=== PATIENT | female | born 1965 | race Caucasian/White ===

== ENCOUNTER 2017-03-24 19:43 | Emergency (ER) | payer OTHER ==
[2017-03-24 19:53] VITALS: PULSE 78; RESP 18; TEMP 98.5; O2SAT 98
[2017-03-24 20:20] LABS: RBC URINE 1 /hpf (0-3); URINE BACTERIA RARE (<OCC); URINE BILIRUBIN NEGATIVE (NEGATIVE); URINE BLOOD NEGATIVE (NEGATIVE); URINE COLOR Yellow (YELLOW); URINE GLUCOSE (UA) NORMAL (Normal); URINE KETONE NEGATIVE (NEGATIVE); URINE LEUKOCYTE ESTERASE NEG Leu/uL (Negative); URINE PROTEIN NEGATIVE (NEGATIVE); URINE UROBILINOGEN NORMAL mg/dL (0.2-1.0); WBC URINE 1 /hpf (0-5)
[2017-03-24] MEDS ORDERED: Sodium Chloride 0.9% 1,000 ML IV ONE (20:23)
--- NOTE | 2017-03-24 20:23 | C.PDOC ---
History Of Present Illness pt c/o r inguinal area discomfort, no trauma,. no dysuria. dull, aching pain Time Seen by Provider: 03/24/17 20:23 Chief Complaint (Nursing): Female Genitourinary History Per: Patient History/Exam Limitations: no limitations Onset/Duration Of Symptoms: Days Current Symptoms Are (Timing): Still Present Context: Other Severity: Moderate Pain Scale Rating Of: 4 Location Of Pain/Discomfort: RLQ Radiation Of Pain To:: None Quality Of Discomfort: Dull, Aching Associated Symptoms: denies: Fever Exacerbating Factors: Movement Alleviating Factors: None Last Bowel Movement: Today Recent travel outside of the [place]: No Additional History Per: Family Abnormal Vaginal Bleeding: No Past Medical History Reviewed: Historical Data, Nursing Documentation, Vital Signs Vital Signs: Last Vital Signs Temp 98.5 F 03/24/17 19:50 Pulse 78 03/24/17 22:34 Resp 18 03/24/17 22:34 BP 122/71 03/24/17 22:34 Pulse Ox 98 03/24/17 22:34 Family History: States: No Known Family Hx - Social History Hx Alcohol Use: No Hx Substance Use: No - Immunization History Hx Tetanus Toxoid Vaccination: No Hx Influenza Vaccination: No Hx Pneumococcal Vaccination: No Review Of Systems Constitutional: Negative for: Fever, Chills Eyes: Negative for: Redness ENT: Negative for: Throat Pain Cardiovascular: Negative for: Chest Pain Respiratory: Negative for: Shortness of Breath Gastrointestinal: Positive for: Abdominal Pain (rlq). Negative for: Nausea Genitourinary: Negative for: Dysuria, Vaginal Bleeding Musculoskeletal: Negative for: Back Pain Skin: Negative for: Rash, Lesions, Jaundice, Bruising Neurological: Negative for: Weakness Psych: Negative for: Anxiety Physical Exam - Physical Exam Appears: Non-toxic, No Acute Distress Skin: Warm, Dry Oral Mucosa: Moist Neck: Trachea Midline, Supple Chest: Symmetrical Cardiovascular: Rhythm Regular Respiratory: No Rales, No Rhonchi, No Wheezing Gastrointestinal/Abdominal: Soft, Tenderness (rlq, inguinal area), No Distention , No Guarding, No Rebound Back: Normal Inspection Extremity: Normal ROM Extremity: Bilateral: Atraumatic, Normal Color And Temperature Neurological/Psych: Oriented x3, Normal Speech, Normal Cognition Gait: Steady ED Course And Treatment - Laboratory Results Result Diagrams: 03/24/17 20:38 03/24/17 20:38 O2 Sat by Pulse Oximetry: 98 Pulse Ox Interpretation: Normal Progress Note: blood work, Reevaluation Time: 23:20 Reassessment Condition: Improved Medical Decision Making Medical Decision Making: Upon provider reevaluation patient is feeling better, is medically stable, and requires no further treatment in the ED at this time. Patient will be discharged home with Rx for naproxyn . Counseling was provided and all questions were answered regarding diagnosis and need for follow up with the referred clinic. There is agreement to discharge plan. Return if symptoms persist or worsen. Disposition Counseled Patient/Family Regarding: Studies Performed, Diagnosis, Need For Followup - Disposition Referrals: [facility] [Outside] [facility] [Outside] Disposition: HOME/ ROUTINE Disposition Time: 20:23 Condition: FAIR Additional Instructions: Please return if symptoms recur. Please follow up in clinic re: inguinal cyst and pleural base nodule left lower lobe Prescriptions: Naproxen [Naprosyn] 1 tab PO BID PRN #25 tab PRN Reason: Pain Instructions: Groin Pain (ED), Pulmonary Nodules (ED) Print Language: VATICAN CITIZEN - Clinical Impression Clinical Impression: Inguinal cyst, Incidental lung nodule, > 3mm and < 8mm
[2017-03-24 20:45] LABS: BASO # 0.1 K/uL (0.0-0.2); BASO % 1.1 % (0.0-2.0); EOS # 0.2 K/uL (0.0-0.7); EOS % 2.3 % (0.0-4.0); HEMATOCRIT 40.6 % (34.0-47.0); LYMPH # 3.1 K/uL (1.0-4.3); LYMPH % 40.5 % (20.0-40.0); MEAN CELL VOLUME 88.8 fL (81.0-99.0); MEAN CORPUSCULAR HEMOGLOBIN 28.6 pg (27.0-31.0); MEAN CORPUSCULAR HGB CONC 32.2 g/dL (33.0-37.0); MEAN PLATELET VOLUME 9.7 fL (7.2-11.7); MONO # 0.6 K/uL (0.0-0.8); MONO % 8.3 % (0.0-10.0); RED CELL DISTRIBUTION WIDTH 13.8 % (11.5-14.5); WHITE BLOOD COUNT 7.8 K/uL (4.8-10.8)
[2017-03-24 20:53] LABS: CHLORIDE 98 mmol/L (98-107); POTASSIUM 3.9 mmol/L (3.6-5.2); SODIUM 138 mmol/L (132-148)
[2017-03-24 20:55] LABS: ALB/GLOB RATIO 1.2 (1.0-2.1); ALKALINE PHOSPHATASE 89 U/L (38-126); AST/SGOT 24 U/L (14-36); BILIRUBIN,TOTAL 0.8 mg/dL (0.2-1.3); CARBON DIOXIDE 31 mmol/L (22-30); GFR AFRICAN-AMERICAN > 60; TOTAL PROTEIN 8.1 g/dL (6.3-8.3)
[2017-03-24 20:56] LABS: ALT/SGPT 12 U/L (9-52); BLOOD UREA NITROGEN 19 mg/dL (7-17); CALCIUM 9.3 mg/dl (8.6-10.4); GLUCOSE,RANDOM 119 mg/dL (65-105)
[2017-03-24] MEDS ORDERED: Iohexol 300 100 ML IJ ONE (21:20)
[2017-03-24 22:35] VITALS: BP 122/71
--- NOTE | 2017-03-25 08:15 | CT ---
PROCEDURE: CT Abdomen and Pelvis with contrast HISTORY: rlq, inguinal pain COMPARISON: None. TECHNIQUE: Contrast dose: 100 cc of Omnipaque 320 Radiation dose: Total exam DLP = 293 mGy-cm. This CT exam was performed using one or more of the following dose reduction techniques: Automated exposure control, adjustment of the mA and/or kV according to patient size, and/or use of iterative reconstruction technique. FINDINGS: LOWER THORAX: 5 millimeter subpleural nodule at the left base. LIVER: Unremarkable. No gross lesion or ductal dilatation. GALLBLADDER AND BILE DUCTS: Unremarkable. PANCREAS: Unremarkable. No gross lesion or ductal dilatation. SPLEEN: Unremarkable. ADRENALS: Unremarkable. No mass. KIDNEYS AND URETERS: Unremarkable. No hydronephrosis. No solid mass. VASCULATURE: Unremarkable. No aortic aneurysm. BOWEL: Unremarkable. No obstruction. No gross mural thickening. APPENDIX: Normal appendix. PERITONEUM: Unremarkable. No free fluid. No free air. LYMPH NODES: Unremarkable. No enlarged lymph nodes. BLADDER: Unremarkable. REPRODUCTIVE: Unremarkable. BONES: No acute fracture. OTHER FINDINGS: 2 centimeter fluid collection in the right groin without peripheral enhancement.. IMPRESSION: 2 centimeter fluid collection in the right groin without peripheral enhancement.. 5 millimeter subpleural nodule at the left base.
== END 2017-03-24 23:34 | disposition home or self-care (01) ==
LOC: SUPCPDRO 19:43 → C.ER 19:43
DX: L72.8 Other follicular cysts of the skin and subcutaneous tissue (principal); R91.1 Solitary pulmonary nodule
CPT/HCPCS: 74177; 80053; 81001; 83690; 84703; 85025; 99284; J7040; Q9967

== ENCOUNTER 2017-09-17 22:02 | Emergency (ER) | payer OTHER ==
[2017-09-17 22:03] VITALS: BMI 25.9
[2017-09-17 23:07] LABS: RBC URINE 3 /hpf (0-3); URINE BACTERIA RARE (<OCC); URINE BILIRUBIN NEGATIVE (NEGATIVE); URINE BLOOD NEGATIVE (NEGATIVE); URINE COLOR Yellow (YELLOW); URINE GLUCOSE (UA) NORMAL (Normal); URINE KETONE NEGATIVE (NEGATIVE); URINE LEUKOCYTE ESTERASE 3+ Leu/uL (Negative); URINE PROTEIN NEGATIVE (NEGATIVE); URINE UROBILINOGEN NORMAL mg/dL (0.2-1.0); WBC URINE 27 /hpf (0-5)
--- NOTE | 2017-09-17 23:59 | C.PDOC ---
History Of Present Illness <La Lerner - Last Filed: 09/18/17 00:51> <Meenu Orozco - Last Filed: 09/18/17 03:45> Patient is a 52 y/o female who presents to the ED with complaints of suprapubic pain, dysuria, and urinary frequency since yesterday. Patient notes today the onset of a mild headache as well. Patient has a Hx of hernia surgery from an old incision but reports no swelling or pain to the area. No other physical complaints at this time. (Meenu Orozco) <La Lerner - Last Filed: 09/18/17 00:51> History Per: Patient History/Exam Limitations: no limitations Onset/Duration Of Symptoms: Days (yesterday) Current Symptoms Are (Timing): Still Present Associated Symptoms: Urinary Symptoms (dysuria and urinary frequency) Recent travel outside of the [place]: No <Meenu Orozco - Last Filed: 09/18/17 03:45> Time Seen by Provider: 09/17/17 22:26 Chief Complaint (Nursing): Abdominal Pain Past Medical History Surgical History: No Surg Hx Family History: States: No Known Family Hx - Social History Hx Tobacco Use: No Hx Alcohol Use: No Hx Substance Use: No - Immunization History Hx Tetanus Toxoid Vaccination: No Hx Influenza Vaccination: No Hx Pneumococcal Vaccination: No <La Lerner - Last Filed: 09/18/17 00:51> Reviewed: Historical Data, Nursing Documentation, Vital Signs - Medical History PMH: No Chronic Diseases Denies: Chronic Kidney Disease Surgical History: No Surg Hx Family History: States: No Known Family Hx - Social History Hx Alcohol Use: No Hx Substance Use: No - Immunization History Hx Tetanus Toxoid Vaccination: No Hx Influenza Vaccination: No Hx Pneumococcal Vaccination: No <Meenu Orozco - Last Filed: 09/18/17 03:45> Vital Signs: Last Vital Signs Temp 98.4 F 09/18/17 00:15 Pulse 74 09/18/17 00:15 Resp 18 09/18/17 00:15 BP 110/75 09/18/17 00:15 Pulse Ox 98 09/18/17 02:52 Review Of Systems Except As Marked, All Systems Reviewed And Found Negative. Constitutional: Negative for: Fever, Chills Eyes: Negative for: Pain, Vision Change ENT: Negative for: Ear Pain, Ear Discharge Cardiovascular: Positive for: Palpitations. Negative for: Chest Pain Respiratory: Negative for: Cough, Shortness of Breath, Hemoptysis <La Lerner - Last Filed: 09/18/17 00:51> Cardiovascular: Negative for: Palpitations Genitourinary: Positive for: Dysuria, Frequency Neurological: Positive for: Headache (mild) <Meenu Orozco - Last Filed: 09/18/17 03:45> Physical Exam - Physical Exam Appears: Well Skin: Normal Color Head: Atraumatic Eye(s): bilateral: Normal Inspection, PERRL, EOMI Ear(s): Bilateral: Normal, TM Erythema Nose: Normal Oral Mucosa: Moist Throat: Normal Neck: Normal Lymphatic: Deferred Chest: Symmetrical Cardiovascular: Rhythm Regular Respiratory: Normal Breath Sounds Gastrointestinal/Abdominal: Normal Exam Back: Normal Inspection Neurological/Psych: Oriented x3, Normal Speech, Normal Cognition <La Lerner - Last Filed: 09/18/17 00:51> - Physical Exam Skin: Other (suprapubic scar from previous tummy tuck surgery; small incision scar to right of perineal area, no swelling, bulging, or hernia) Eye(s): bilateral: Normal Inspection, PERRL Neck: Supple Gastrointestinal/Abdominal: Soft, No Tenderness Back: Normal Inspection, No CVA Tenderness Pelvic: Other (deferred) <Meenu Orozco - Last Filed: 09/18/17 03:45> ED Course And Treatment ECG: Interpreted By Me <La Lerner - Last Filed: 09/18/17 00:51> O2 Sat by Pulse Oximetry: 98 Pulse Ox Interpretation: Normal Progress Note: Plan: Urine culture ordered. Motrin, Macrobid, and Pyridium administered. Patient is negative for UTI. Plan d/w pt who understands and agreed with plan. Advised for follow up with PMD, return precautions were also discussed Reassessment Condition: Improved <Meenu Orozco - Last Filed: 09/18/17 03:45> Disposition <La Lerner - Last Filed: 09/18/17 00:51> Counseled Patient/Family Regarding: Diagnosis, Need For Followup, Rx Given - Disposition Disposition Time: 23:56 <Meenu Orozco - Last Filed: 09/18/17 03:45> - Disposition Referrals: [facility] at [facility] [Outside] Disposition: HOME/ ROUTINE Condition: STABLE Additional Instructions: Please drink plenty of fluids Take meds as directed Return to ER if worse Prescriptions: Ibuprofen [Motrin] 600 mg PO Q6H #20 tab Nitrofurantoin Macrocrystals [Macrobid] 1 cap PO BID #14 cap Phenazopyridine HCl [Pyridium] 100 mg PO TID #6 tab Instructions: Urinary Tract Infection in Women (ED) Forms: [employer] (Romanian) Print Language: COLOMBIAN - Clinical Impression Clinical Impression: UTI (urinary tract infection) <La Lerner - Last Filed: 09/18/17 00:51> - Scribe Statement The provider has reviewed the documentation as recorded by the Scribe <Meenu Orozco - Last Filed: 09/18/17 03:45> - Scribe Statement Vicky Noyola All medical record entries made by the Scribe were at my direction and personally dictated by me. I have reviewed the chart and agree that the record accurately reflects my personal performance of the history, physical exam, medical decision making, and the department course for this patient. I have also personally directed, reviewed, and agree with the discharge instructions and disposition. (Meenu Orozco)
[2017-09-18 00:16] VITALS: BP 110/75; PULSE 74; RESP 18; TEMP 98.4
[2017-09-18 02:49] VITALS: O2SAT 98
== END 2017-09-18 00:15 | disposition home or self-care (01) ==
LOC: C.ER 22:02
DX: N39.0 Urinary tract infection, site not specified (principal)

== ENCOUNTER 2018-07-16 15:45 | Emergency (ER) | payer OTHER ==
[2018-07-16 15:46] VITALS: BMI 25.9
--- NOTE | 2018-07-16 17:02 | C.PDOC ---
History Of Present Illness 53 y/o female with history of DM presents to ED with c/o "pressure" chest pain since this afternoon after she coughed. Patient states she is concern because she has been told there is a nodule in her lungs. She notes she had a OLIVO yesterday which has since resolved, not worst of life, not sudden in onset, no FND. Pt also noted back pain yesterday, none today, no hx of IVDU, no DM2, no trauma. No enuresis, encoparesis or loss of sensation in legs. denies sob, nausea, vomiting, leg swelling, recent travel or any other complaints at this time. Time Seen by Provider: 07/16/18 17:02 Chief Complaint (Nursing): Chest Pain History Per: Patient History/Exam Limitations: no limitations Onset/Duration Of Symptoms: Hrs Current Symptoms Are (Timing): Still Present Quality: Pressure Past Medical History Reviewed: Historical Data, Nursing Documentation, Vital Signs Vital Signs: Last Vital Signs Temp 98.0 F 07/16/18 18:55 Pulse 58 L 07/16/18 18:55 Resp 18 07/16/18 18:55 BP 112/72 07/16/18 18:55 Pulse Ox 100 07/16/18 19:42 - Medical History PMH: No Chronic Diseases Surgical History: No Surg Hx Family History: States: No Known Family Hx - Social History Hx Tobacco Use: No Hx Alcohol Use: No Hx Substance Use: No - Immunization History Hx Tetanus Toxoid Vaccination: Yes Hx Influenza Vaccination: Yes Hx Pneumococcal Vaccination: Yes Review Of Systems Except As Marked, All Systems Reviewed And Found Negative. Constitutional: Negative for: Fever, Chills Cardiovascular: Positive for: Chest Pain Respiratory: Positive for: Cough, Sputum. Negative for: Shortness of Breath, Wheezing Gastrointestinal: Negative for: Nausea, Vomiting Skin: Negative for: Rash Neurological: Positive for: Headache Physical Exam - Physical Exam Appears: Non-toxic, No Acute Distress Skin: Warm, Dry, No Rash Head: Atraumatic, Normacephalic Eye(s): bilateral: Normal Inspection Oral Mucosa: Moist Neck: Normal ROM, Supple Chest: Symmetrical Cardiovascular: Rhythm Regular Respiratory: Normal Breath Sounds, No Rales, No Rhonchi, No Wheezing Gastrointestinal/Abdominal: Soft, No Tenderness, No Guarding, No Rebound Extremity: Normal ROM, No Pedal Edema, Capillary Refill (<2 seconds) Neurological/Psych: Oriented x3, Normal Speech, Normal Cognition Additional Physical Exam Comments: no meningeal signs ED Course And Treatment - Laboratory Results Result Diagrams: 07/16/18 18:15 07/16/18 18:15 ECG: Interpreted By Me, Viewed By Me ECG Rhythm: Sinus Rhythm Rate From EC (BPM) O2 Sat by Pulse Oximetry: 100 (RA) Medical Decision Making Medical Decision Makin yr old female w/ hx of lung nodule p/w chest pain. No rx factors. No family hx of heart attacks, no HTN, DM2, HLD. Cough w/ streaks of blood, no wheezing or sore throat. Phonating and swallowing well. Pt notes she is mainly concerned about previous nodule on her xr. No meningeal signs on my exam. Fully normal neuro exam. No saddle anesthesia. Walking well. Plan: Blood work, EKG and CXR ordered. Tylenol administered. Heart Score: Story: 0 EK RF: 0 Trop: 0 age: 1 HS: 1 Gestalt low for PE labs and imaging unremarkable, clear for d/c home. Disposition - Disposition Referrals: Jamie Page MD [Staff Provider] - Disposition: HOME/ ROUTINE Disposition Time: 19:41 Condition: GOOD Additional Instructions: JUAN SHINE, thank you for letting us take care of you today. Your provider was Indra Bautista and you were treated for HEADACHE/BACK PAIN. The emergency medical care you received today was directed at your acute symptoms. If you were prescribed any medication, please fill it and take as directed. It may take several days for your symptoms to resolve. Return to the Emergency Department if your symptoms worsen, do not improve, or if you have any other problems. Please contact your doctor or call one of the physicians/clinics you have been referred to that are listed on the Patient Visit Information form that is included in your discharge packet. Bring any paperwork you were given at discharge with you along with any medications you are taking to your follow up visit. Our treatment cannot replace ongoing medical care by a primary care provider outside of the emergency department. Thank you for allowing the [facility] team to be part of your care today. If you had an X-Ray or CT scan: A Radiologist will review the ED reading if any change in treatment is needed we will contact you. If you had a blood, urine, or wound culture: It will take several days for the results, if any change in treatment is needed we will contact you. If you had an STI test: It will take 48 hours for the results. Please call after 1 week if you have not heard back. Instructions: Costochondritis, Chest Pain Forms: [employer] (Uruguayan) - Clinical Impression Clinical Impression: Chest pain, Chest pain, Chest discomfort - Scribe Statement The provider has reviewed the documentation as recorded by the Asmita Cavazos All medical record entries made by the Asmita were at my direction and personally dictated by me. I have reviewed the chart and agree that the record accurately reflects my personal performance of the history, physical exam, medical decision making, and the department course for this patient. I have also personally directed, reviewed, and agree with the discharge instructions and disposition.
[2018-07-16 17:49] VITALS: O2SAT 100
[2018-07-16 18:34] LABS: ALB/GLOB RATIO 1.2 (1.0-2.1); ALT/SGPT 12 U/L (9-52); AST/SGOT 23 U/L (14-36); BLOOD UREA NITROGEN 15 mg/dL (7-17); CALCIUM 9.5 mg/dl (8.6-10.4); GFR NON-AFRICAN AMERICAN > 60
[2018-07-16 18:35] LABS: BASO # 0.1 K/uL (0.0-0.2); BASO % 0.9 % (0.0-2.0); EOS % 0.4 % (0.0-4.0); HEMOGLOBIN 12.6 g/dL (11.0-16.0); LYMPH # 1.9 K/uL (1.0-4.3); LYMPH % 28.5 % (20.0-40.0); MEAN CELL VOLUME 89.9 fL (81.0-99.0); MEAN CORPUSCULAR HEMOGLOBIN 29.9 pg (27.0-31.0); MEAN CORPUSCULAR HGB CONC 33.3 g/dL (33.0-37.0); MEAN PLATELET VOLUME 10.1 fL (7.2-11.7); MONO # 0.5 K/uL (0.0-0.8); MONO % 8.1 % (0.0-10.0); NEUT % 62.1 % (50.0-75.0); RBC 4.2 Mil/uL (3.80-5.20); RED CELL DISTRIBUTION WIDTH 13.9 % (11.5-14.5); WHITE BLOOD COUNT 6.5 K/uL (4.8-10.8)
[2018-07-16 18:56] VITALS: BP 112/72; PULSE 58; RESP 18; TEMP 98
--- NOTE | 2018-07-17 11:49 | RAD ---
Chest x-ray two views History: Chest pain. Comparison: None available. Findings: Bibasilar breast and nipple shadows. No focal infiltrate or effusion. Heart size within normal limits. Degenerative changes in the spine. Impression: No focal infiltrate or effusion.
== END 2018-07-16 20:12 | disposition home or self-care (01) ==
LOC: C.ER 15:45
DX: R07.89 Other chest pain (principal)

== ENCOUNTER 2018-12-17 15:16 | Outpatient (CLI) | payer OTHER | END 2018-12-17 15:17 | disposition home or self-care (01) | LOC: C.DEXAIC 15:16 | DX: S32.010D Wedge compression fracture of first lumbar vertebra, subsequent encounter for fracture with routine healing (principal) ==

== ENCOUNTER → 2019-01-22 | Outpatient (CLI) | payer SELFPAY | LOC: C.SLEEP 17:52 | DX: G47.33 Obstructive sleep apnea (adult) (pediatric) (principal) ==

== ENCOUNTER 2019-01-30 06:50 | Emergency (ER) | payer SELFPAY ==
[2019-01-30 06:51] VITALS: BMI 25.9
--- NOTE | 2019-01-30 08:36 | C.PDOC ---
History Of Present Illness 53 y/o female presents to the ED complaining of 1 week of URI symptoms including nasal congestion and cough. For the last 2 days patient notes cough worsened, and she is now bringing up sputum. + Subjective fever. Otherwise patient denies any hemoptysis, wheezing, SOB, chest pain, nausea, vomiting, or abdominal pain. HPI: Influenza Time Seen by Provider: 01/30/19 07:16 Chief Complaint: Cough, Cold, Congestion Chief Complaint (Provider): Cough, Cold, Congestion History Per: Patient Exam Limitations: no limitations Onset/Duration Of Symptoms: Days Symptoms include: fever, cough, nasal congestion Past Medical History Reviewed: Historical Data, Nursing Documentation, Vital Signs Vital Signs: Last Vital Signs Temp 99.5 F 01/30/19 07:08 Pulse 69 01/30/19 07:08 Resp 17 01/30/19 07:08 BP 110/82 01/30/19 07:08 Pulse Ox 99 01/30/19 07:08 - Medical History PMH: Denies: Chronic Kidney Disease Surgical History: Hernia Repair, Other Surgeries: Abdominoplasty Family History: States: Unknown Family Hx - Social History Hx Tobacco Use: No Hx Alcohol Use: No Hx Substance Use: No - Immunization History Hx Tetanus Toxoid Vaccination: No Hx Influenza Vaccination: No Hx Pneumococcal Vaccination: No Review Of Systems Except As Marked, All Systems Reviewed And Found Negative. Constitutional: Positive for: Fever ENT: Positive for: Nose Congestion Cardiovascular: Negative for: Chest Pain, Palpitations Respiratory: Positive for: Cough, Sputum. Negative for: Shortness of Breath Gastrointestinal: Negative for: Nausea, Vomiting, Abdominal Pain, Diarrhea Musculoskeletal: Negative for: Back Pain Skin: Negative for: Rash Neurological: Negative for: Weakness, Numbness Physical Exam - Physical Exam Appears: Non-toxic, No Acute Distress Skin: Warm, Dry, No Rash Head: Atraumatic, Normacephalic Eye(s): bilateral: Normal Inspection, PERRL, EOMI Oral Mucosa: Moist Neck: Normal ROM, Supple Chest: Symmetrical Cardiovascular: Rhythm Regular, No Murmur Respiratory: Normal Breath Sounds, No Rales, No Rhonchi, No Wheezing, Other (Oc casional cough noted) Gastrointestinal/Abdominal: Soft, No Tenderness, No Distention Extremity: Bilateral: Atraumatic, Normal Color And Temperature Pulses: Left Dorsalis Pedis: Normal, Right Dorsalis Pedis: Normal Neurological/Psych: Oriented x3, Normal Speech - ECG O2 Sat by Pulse Oximetry: 99 (RA) Pulse Ox Interpretation: Normal - Radiology X-Ray: Interpreted by Me X-Ray Interpretation: No Acute Disease - Progress ED Course And Treament: CXR taken, shows no infiltrates. On re-evaluation patient is resting comfortably, remains afebrile. Lungs CTA bilaterally. No wheezing. Counseled patient regarding diagnosis and treatment. Patient will be discharged home with Zithromax, given initial dose in the ED. Provided prescriptions for motrin, flonase, and bromfed dm. Disposition Counseled Patient/Family Regarding: Studies Performed, Diagnosis, Need For Followup, Rx Given - Disposition Referrals: [facility] at [facility] [Outside] Disposition: HOME/ ROUTINE Disposition Time: 08:33 Condition: STABLE Additional Instructions: Follow up with PMD/Clinic within 1-2 days. Return to ED if feel worse. Prescriptions: Brompheniramine/Pseudoephed/Dm [Bromfed Dm Cough 118 ml] 10 ml PO Q4 #300 ml Fluticasone Nasal [Flonase] 1 spr NS BID #1 spr Ibuprofen [Motrin Tab] 400 mg PO Q8 #30 tab Azithromycin [Zithromax] 250 mg PO DAILY #4 tab Instructions: Acute Bronchitis, Upper Respiratory Infection (ED) Forms: [employer] (Amharic) Print Language: EAST TIMORESE - Clinical Impression Clinical Impression: Bronchitis, Upper respiratory infection - PA / PURSE MAKER / Resident Statement MD/DO has reviewed & agrees with the documentation as recorded. - Scribe Statement The provider has reviewed the documentation as recorded by the Asmita Sheth All medical record entries made by the Aimeibshelbi were at my direction and personally dictated by me. I have reviewed the chart and agree that the record accurately reflects my personal performance of the history, physical exam, medical decision making, and the department course for this patient. I have also personally directed, reviewed, and agree with the discharge instructions and disposition.
[2019-01-30 08:48] VITALS: BP 111/68; PULSE 84; RESP 16; TEMP 98.6
[2019-01-30 11:37] VITALS: O2SAT 99
--- NOTE | 2019-01-30 15:00 | RAD ---
Date of service: 01/30/2019 HISTORY: cough COMPARISON: Comparison chest 07/16/2018 TECHNIQUE: Chest PA and lateral views FINDINGS: LUNGS: Minor bibasilar atelectasis PLEURA: No significant pleural effusion identified. No pneumothorax apparent. CARDIOVASCULAR: No aortic atherosclerotic calcification present. Normal cardiac size. No pulmonary vascular congestion. OSSEOUS STRUCTURES: No significant abnormalities. VISUALIZED UPPER ABDOMEN: Normal. OTHER FINDINGS: None. IMPRESSION: Minor bibasilar atelectasis.
== END 2019-01-30 08:47 | disposition home or self-care (01) ==
LOC: C.ER 06:50
DX: J40 Bronchitis, not specified as acute or chronic (principal); J06.9 Acute upper respiratory infection, unspecified